=== PATIENT | female | born 1960 | race Caucasian/White ===

== ENCOUNTER 2023-04-28 06:10 | Emergency (ER) | payer SELFPAY ==
[2023-04-28 06:11] VITALS: BP 159/86; PULSE 79; RESP 16; TEMP 36.4; O2SAT 100; BMI 30.8
[2023-04-28] MEDS: Ketorolac 60 MG/2 ML Vial IM (07:26)
--- NOTE | 2023-04-28 07:37 | EDS_ITS ---
HPI History of Present Illness Chief Complaint: Back Narrative Narrative: Patient is a 62-year-old female who is presenting to the ER with chief complaint of acute on chronic left lower back pain, radiation to left buttock, down her left lateral thigh down into her fourth and fifth left toes. Patient states she has a history of herniated disc. Patient was diagnosed with sciatica over 20 years ago. Patient has had a flareup in approximately April 16. Patient does not recall injury. Patient works third shift at [employer]. Patient has no urinary or bowel incontinence. Patient has been intermittent using ice and heat. Patient saw an urgent care several weeks ago. Patient was prescribed a Medrol Dosepak and muscle relaxer. Patient was feeling better on the steroids but then the steroids stopped patient's pain came back. Patient currently has no PCP. Patient has seen a chiropractor in the past for this. Patient has never seen a neurosurgeon or mobile paint specialist. Patient is here this morning secondary to pain. Patient has no rash. No abdominal pain, nausea or vomiting. No urinary frequency urgency or burning. No other acute complaints. Patient drove to the ER today, patient says she lives across the [address]. Patient is not using a cane or walker. [facility] Medical History (Updated 04/28/23 @ 07:[address] Alexis Hardin DO) Sciatic leg pain Home Medications hydrocodone-acetaminophen 5-325mg 5mg-325mg 1 tab PO Q6H PRN PRN Pain 3 days #10 TABLETS 04/28/23 [Rx Last Taken Unknown] methocarbamol 750 mg tablet 750 mg PO Q8H PRN pain #10 tabs 04/28/23 [Rx Last Taken Unknown] naproxen 500 mg tablet (Naprosyn) 500 mg PO BID PRN pain #20 tabs 04/28/23 [Rx Last Taken Unknown] Allergy/AdvReac Type Severity Reaction Status Date / Time No Known Allergies Allergy Verified 04/28/23 06:11 Surgical History (Updated 04/28/23 @ 06:12 by Chantel Jay) H/O: hysterectomy Social History Smoking Status: Current every day smoker tobacco type: cigarettes ROS ROS ED ROS Narrative REVIEW OF SYSTEMS: Unless otherwise stated in this report the patient's positive and negative responses for review of systems for constitutional, eyes, ENT, cardiovascular, respiratory, gastrointestinal, neurological, , musculoskeletal, and integument systems and related systems to the presenting problem are either stated in the history of present illness or were not pertinent or were negative for the symptoms and/or complaints related to the presenting medical problem. EXAM Physical Exam Narrative Exam Narrative: Vital signs reviewed and patient is not hypoxic. General: The patient appears well and in no apparent distress. Patient is resting comfortably on cart. Not toxic, lethargic, or listless. Skin: Warm, dry, no pallor noted. There is no rash noted. Head: Normocephalic, atraumatic Eye: Normal conjunctiva, no drainage, EOMI. PERRL. Ears, Nose, Mouth, and Throat: oral mucosa is moist. Cardiovascular: Regular Rate and Rhythm, no murmurs, gallops, or rubs Respiratory: Patient is in no distress, no accessory muscle use, lungs are clear to auscultation, no wheezing, rales or rhonchi Back: Moderate tenderness to palpation to the left paralumbar soft tissue, mild midline L3-S1 tenderness to palpation, no step-offs, no knee pain. No rash. Moderate tenderness to palpation to left piriformis muscle, positive straight leg raising test on the left, negative on the right. No rash noted. Otherwise non-tender, no CVA tenderness bilaterally to percussion. Otherwise NO new CTLS midline or paraspinal tenderness to palpation. GI: Soft, no tenderness to palpation, no masses appreciated. No rebound, guarding, or rigidity noted. Musculoskeletal: The patient has full range of motion of all extremities and joints with no difficulty. Patient has no motor, no sensory deficits. Neurological: A&O x4, normal speech, no focal neurological deficits. Psychiatric: Cooperative Const Vital Signs: 04/28/23 06:11 Temperature 97.6 F L Temperature Source Temporal Pulse Rate 79 Respiratory Rate 16 Blood Pressure 159/86 H Blood Pressure Mean 110 Pulse Ox 100 MDM [facility] MDM Narrative Medical decision making narrative: Patient is having acute on chronic left sciatica/left piriformis syndrome, left lumbar radiculopathy with sciatica. Patient had an exacerbation of her pain April 16. 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 Patient saw urgent care, was prescribed muscle relaxer and short course of prednisone. Patient's pain was getting better while she was on prednisone, prednisone finished, patient's pain came back to what it was previously. Patient was educated on following up with PCP, health department, or orthopedic surgery who specializes in spine. Patient was sent home with short course of [place] mchugh. Along with Naprosyn. Patient understands we do not treat long- term pain from the emergency room. Patient must establish with PCP. Education and ice was done at bedside along with work note. Patient was given injection of Toradol. Patient says she lives [place] the [place] from the hospital. Education was done at bedside on treating long-term pain. Patient will follow- up with her chiropractor as well. Requested discharge Discharge Plan Triage Chief Complaint: Back ED Provider: Alexis Hardin Dx/Rx/DC Orders Clinical Impression: Piriformis syndrome of left side, Chronic left-sided low back pain with left- sided sciatica Instructions: Understanding Chronic Pain, Common Myths About Pain Medications, Understanding Lumbar Radiculopathy, Back Exercises: Hip Rotator Stretch, ED Back Sprain/Strain, ED Sciatica Prescriptions: New hydrocodone-acetaminophen [hydrocodone-acetaminophen] 5-325 mg tablet 1 tab PO Q6H PRN PRN (Reason: Pain) 3 Days Qty: 10 0RF naproxen [Naprosyn] 500 mg tablet 500 mg PO BID PRN (Reason: pain) Qty: 20 0RF methocarbamol 750 mg tablet 750 mg PO Q8H PRN (Reason: pain) Qty: 10 0RF Stand Alone Forms: ED Work / School Excuse Primary Care Provider: Care Physician,No Primary Referrals: Alexis Stiles, [Med Staff - Active Staff] - NOT,DEFINED [Non-Staff] - Activity Restrictions/Additional Instructions: Use ice 20 minutes on, 20 minutes off.. Follow-up with your chiropractor. You need to establish a PCP or the health department. Follow-up with mobile paint specialist as well, names have been referred. Disposition Disposition: Home, Self Care
[2023-04-28 07:55] VITALS: BP 136/97; PULSE 77; RESP 16; O2SAT 95
== END 2023-04-28 07:57 | disposition home or self-care (01) ==
LOC: ED 07:44
PROVIDERS: Emergency Provider Emergency Medicine; Visit Provider Emergency Medicine
DX: G57.02 Lesion of sciatic nerve, left lower limb (principal); M54.42 Lumbago with sciatica, left side; F17.210 Nicotine dependence, cigarettes, uncomplicated; G89.29 Other chronic pain
CPT/HCPCS: 96372; 99282